=== PATIENT | female | born 1960 | race African-American/Black ===

== ENCOUNTER 2022-12-04 09:42 | Inpatient (IN) | payer OTHER ==
[2022-12-04 10:06] VITALS: BMI 23.1
[2022-12-04] MEDS ORDERED: guaiFENesin 600 MG TABLET.ER (FP) PO PRN (10:37)
[2022-12-04] MEDS ORDERED: BISMUTH SUBSALICYLATE 262 MG/15 ML BTL PO PRN (10:37)
[2022-12-04] MEDS ORDERED: methaDONE HCL 10 MG TABLET (FOR DETOX USE ONLY) PO ONE (10:37)
[2022-12-04] MEDS ORDERED: NALOXONE HCL (KLOXXADO) 8 MG SPRAY NS PRN (10:37)
[2022-12-04] MEDS ORDERED: NICOTINE 10 MG CARTRIDGE (INHALER) IH PRN (10:37)
[2022-12-04] MEDS ORDERED: BENZOCAINE/MENTHOL (CHLORASEPTIC ) LOZENGE MM PRN (10:37)
[2022-12-04] MEDS ORDERED: IBUPROFEN 400 MG TABLET (FP) PO PRN (10:37)
[2022-12-04] MEDS ORDERED: DICYCLOMINE HCL 10 MG CAPSULE PO PRN (10:37)
[2022-12-04] MEDS ORDERED: MAG HYDROX/AL HYDROX/SIMETH 30 ML UNIT-DOSE CUP PO PRN (10:37)
[2022-12-04] MEDS ORDERED: POLYETHYLENE GLYCOL (HEALTHYLAX) 3350 17 GM PACKET PO PRN (10:37)
[2022-12-04] MEDS ORDERED: BENZONATATE 200 MG CAPSULE PO PRN (10:37)
[2022-12-04] MEDS ORDERED: ACETAMINOPHEN 325 MG TABLET (FP) PO PRN (10:37)
[2022-12-04] MEDS ORDERED: NALOXONE HCL 0.4 MG/ML VIAL IM PRN (10:37)
[2022-12-04] MEDS ORDERED: MAGNESIUM HYDROX 2400MG/30ML ORAL SUSPENSION 30 ML CUP PO PRN (10:37)
[2022-12-04] MEDS ORDERED: LOPERAMIDE HCL 2 MG CAPSULE PO PRN (10:37)
[2022-12-04] MEDS ORDERED: methaDONE HCL 10 MG TABLET (FOR DETOX USE ONLY) ONE (12:18)
[2022-12-04] MEDS ORDERED: NICOTINE 14 MG/24 HOURS TOPICAL PATCH TD ONE (12:19)
[2022-12-04] MEDS ORDERED: ONDANSETRON *ODT* 4 MG TABLET ONE (12:19)
[2022-12-04] MEDS: NICOTINE 14 MG/24 HOURS TOPICAL PATCH TD SCH (12:47)
[2022-12-04] MEDS: PRENATAL VITAMINS W/ FOLIC ACID TABLET (FP) PO SCH (12:48)
[2022-12-04] MEDS: cloNIDine HCL 0.1 MG TABLET PO PRN (13:16)
[2022-12-04 13:29] LABS: HEMATOCRIT 38.7 % (32.4-45.2); HEMOGLOBIN 12.5 GM/dL (10.7-15.3); MCH 30.9 pg (25.7-33.7); MCHC 32.3 g/dl (32.0-36.0); MEAN CELL VOLUME 95.5 fl (80-96); MEAN PLT VOLUME 9.4 fl (7.5-11.1); PLATELET COUNT 165 10^3/uL (134-434); RBC 4.05 M/mm3 (3.60-5.2); RDW 13.3 % (11.6-15.6); WHITE BLOOD COUNT 6.8 K/mm3 (4.0-10.0)
[2022-12-04 14:18] LABS: POTASSIUM 4.2 mmol/L (3.5-5.1)
[2022-12-04 14:20] LABS: CALCIUM 10.2 mg/dL (8.5-10.1)
[2022-12-04 14:21] LABS: ALBUMIN 4.1 g/dl (3.4-5.0); BLOOD UREA NITROGEN 27.4 mg/dL (7-18)
[2022-12-04 14:24] LABS: CREATININE 1.5 mg/dL (0.55-1.3)
[2022-12-04 14:26] LABS: BILIRUBIN,TOTAL 0.2 mg/dL (0.2-1); TOT PROT 7.7 g/dl (6.4-8.2)
[2022-12-04] MEDS: hydrOXYzine PAMOATE 25 MG CAPSULE (FP) PO PRN (17:37)
[2022-12-04] MEDS: IBUPROFEN 600 MG TABLET (FP) PO PRN (17:37)
[2022-12-04] MEDS ORDERED: MELATONIN 5 MG TABLETS PO SCH (22:00)
[2022-12-04] MEDS: THIAMINE HCL 100 MG TABLET (FP) PO SCH (22:13)
[2022-12-05] MEDS: PRENATAL VITAMINS W/ FOLIC ACID TABLET (FP) PO SCH (09:59)
[2022-12-05] MEDS: IBUPROFEN 600 MG TABLET (FP) PO PRN (10:01)
[2022-12-05] MEDS: hydrOXYzine PAMOATE 25 MG CAPSULE (FP) PO PRN ×2 (10:01→17:21)
[2022-12-05] MEDS: cloNIDine HCL 0.1 MG TABLET PO PRN (10:01)
[2022-12-05] MEDS: NICOTINE 14 MG/24 HOURS TOPICAL PATCH TD SCH (10:03)
[2022-12-05] MEDS: ONDANSETRON *ODT* 4 MG TABLET SL PRN (10:04)
[2022-12-05] MEDS ORDERED: amLODIPine BESYLATE 5 MG TABLET (FP) PO SCH (11:00)
[2022-12-05] MEDS: METHOCARBAMOL 500 MG TABLET PO PRN ×2 (17:21→23:40)
[2022-12-05] MEDS: THIAMINE HCL 100 MG TABLET (FP) PO SCH (22:20)
[2022-12-05] MEDS: SUVOREXANT 10 MG TABLET PO PRN (22:21)
[2022-12-06] MEDS ORDERED: amLODIPine BESYLATE 5 MG TABLET (FP) PO SCH (10:00)
[2022-12-06] MEDS ORDERED: methaDONE HCL 10 MG TABLET (FOR DETOX USE ONLY) PO ONE (10:00)
[2022-12-06] MEDS: PRENATAL VITAMINS W/ FOLIC ACID TABLET (FP) PO SCH (10:09)
[2022-12-06] MEDS: NICOTINE 14 MG/24 HOURS TOPICAL PATCH TD SCH (10:09)
[2022-12-06] MEDS: cloNIDine HCL 0.1 MG TABLET PO PRN (10:32)
[2022-12-06] MEDS: hydrOXYzine PAMOATE 25 MG CAPSULE (FP) PO PRN (10:32)
[2022-12-06] MEDS ORDERED: amLODIPine BESYLATE 10 MG TABLET (FP) PO SCH (11:00)
[2022-12-06] MEDS ORDERED: MAGNESIUM HYDROX 2400MG/30ML ORAL SUSPENSION 30 ML CUP PO ONE (12:00)
[2022-12-06 12:03] LABS: POTASSIUM 4.3 mmol/L (3.5-5.1)
[2022-12-06 12:05] LABS: ALBUMIN 3.6 g/dl (3.4-5.0); BLOOD UREA NITROGEN 13.5 mg/dL (7-18); CALCIUM 9.8 mg/dL (8.5-10.1)
[2022-12-06 12:08] LABS: PHOSPHOROUS 3.6 mg/dL (2.5-4.9)
[2022-12-06] MEDS ORDERED: LISINOPRIL 10 MG TABLET PO ONE (15:15)
[2022-12-06] MEDS: SUVOREXANT 10 MG TABLET PO PRN (22:05)
[2022-12-06] MEDS: THIAMINE HCL 100 MG TABLET (FP) PO SCH (22:05)
[2022-12-06] MEDS: METHOCARBAMOL 500 MG TABLET PO PRN (22:05)
[2022-12-07] MEDS: hydrOXYzine PAMOATE 25 MG CAPSULE (FP) PO PRN (00:47)
[2022-12-07] MEDS: METHOCARBAMOL 500 MG TABLET PO PRN (05:37)
[2022-12-07] MEDS: ONDANSETRON *ODT* 4 MG TABLET SL PRN (08:25)
[2022-12-07 09:00] VITALS: BP 154/80; PULSE 70; TEMP 96.9
[2022-12-07] MEDS ORDERED: amLODIPine BESYLATE 10 MG TABLET (FP) PO SCH (10:00)
[2022-12-07 10:05] VITALS: RESP 17
[2022-12-07] MEDS: PRENATAL VITAMINS W/ FOLIC ACID TABLET (FP) PO SCH (10:27)
[2022-12-07] MEDS: NICOTINE 14 MG/24 HOURS TOPICAL PATCH TD SCH (10:27)
[2022-12-07] MEDS: THIAMINE HCL 100 MG TABLET (FP) PO SCH (23:25)
[2022-12-08] MEDS ORDERED: methaDONE HCL 10 MG TABLET (FOR DETOX USE ONLY) PO ONE (10:00)
== END 2022-12-07 23:50 | disposition short-term general hospital (02) | DRG 897 ==
LOC: YASAS 09:42 → Y6N 11:26
PROVIDERS: ADMIT Allergy & Immunology; ATTEND Surgery
PROC: HZ2ZZZZ Detoxification Services for Substance Abuse Treatment (ICD-10-PCS; principal; 2022-12-04)
DX: F11.23 Opioid dependence with withdrawal (principal); F14.20 Cocaine dependence, uncomplicated; F19.282 Other psychoactive substance dependence with psychoactive substance-induced sleep disorder; E87.0 Hyperosmolality and hypernatremia; F10.20 Alcohol dependence, uncomplicated; F12.20 Cannabis dependence, uncomplicated; F32.A Depression, unspecified; F41.9 Anxiety disorder, unspecified; R11.2 Nausea with vomiting, unspecified; E86.0 Dehydration; Z85.3 Personal history of malignant neoplasm of breast; Z91.410 Personal history of adult physical and sexual abuse; Z86.19 Personal history of other infectious and parasitic diseases
CPT/HCPCS: 36415; 80053; 80069; 83036; 85027; 86780; 87635; 93005; 93010; Q0162

== ENCOUNTER 2022-12-07 09:37 | Inpatient (IN) | payer OTHER ==
[2022-12-07] MEDS ORDERED: ONDANSETRON 4 MG/2 ML VIAL IVPUSH ONE ×2 (09:57→15:04)
[2022-12-07] MEDS ORDERED: ONDANSETRON 4 MG/2 ML VIAL ONE ×2 (10:03→15:09)
[2022-12-07 10:27] LABS: BASO % 0.6 % (0-2.0); EOS % 1.2 % (0-4.5); HEMATOCRIT 43.4 % (32.4-45.2); HEMOGLOBIN 14.6 GM/dL (10.7-15.3); LYMPH % 19.1 % (8-40); MCH 30.8 pg (25.7-33.7); MCHC 33.7 g/dl (32.0-36.0); MEAN CELL VOLUME 91.2 fl (80-96); MEAN PLT VOLUME 8.7 fl (7.5-11.1); MONO % 5.7 % (3.8-10.2); NEUT % 73.4 % (42.8-82.8); PLATELET COUNT 191 10^3/uL (134-434); RBC 4.76 M/mm3 (3.60-5.2); WHITE BLOOD COUNT 6.2 K/mm3 (4.0-10.0)
[2022-12-07] MEDS ORDERED: METOCLOPRAMIDE HCL INJECTION 10 MG/2 ML VIAL IVPUSH ONE (10:30)
[2022-12-07] MEDS ORDERED: LACTATED RINGERS SOLUTION 1000 ML INFUS.BAG IV ONE (10:30)
[2022-12-07] MEDS ORDERED: FAMOTIDINE 20 MG/50 ML IVPB 20 MG/50 ML MG IVPB ONE ×2 (10:30→10:41)
[2022-12-07] MEDS ORDERED: ACETAMINOPHEN 1000 MG/100 ML BAG IVPB ONE (10:30)
[2022-12-07] MEDS ORDERED: METOCLOPRAMIDE HCL INJECTION 10 MG/2 ML VIAL ONE (10:40)
[2022-12-07] MEDS ORDERED: ACETAMINOPHEN INJECTION 100 ML IVPB ONE (10:41)
[2022-12-07 10:42] LABS: POTASSIUM 4.4 mmol/L (3.5-5.1)
[2022-12-07 10:44] LABS: ALBUMIN 4.1 g/dl (3.4-5.0); BLOOD UREA NITROGEN 11.7 mg/dL (7-18)
[2022-12-07 10:48] LABS: CREATININE 1.1 mg/dL (0.55-1.3)
[2022-12-07 10:50] LABS: BILIRUBIN,TOTAL 0.4 mg/dL (0.2-1); TOT PROT 7.9 g/dl (6.4-8.2)
[2022-12-07] MEDS ORDERED: methaDONE HCL 10 MG TABLET PO ONE (10:59)
[2022-12-07] MEDS ORDERED: methaDONE HCL 10 MG TABLET ONE (11:01)
[2022-12-07] MEDS ORDERED: KETOROLAC TROMETHAMINE 15 MG/ML VIAL IVPUSH ONE (15:05)
[2022-12-07] MEDS ORDERED: MAG HYDROX/AL HYDROX/SIMETH 30 ML UNIT-DOSE CUP PO ONE (15:06)
[2022-12-07] MEDS ORDERED: MAG HYDROX/AL HYDROX/SIMETH 30 ML UNIT-DOSE CUP ONE (15:09)
[2022-12-07] MEDS ORDERED: KETOROLAC TROMETHAMINE 15 MG/ML VIAL ONE (15:09)
[2022-12-07 16:06] LABS: URINE APPEARANCE CLEAR; URINE BILIRUBIN NEGATIVE (NEGATIVE); URINE COLOR YELLOW; URINE GLUCOSE (UA) NEGATIVE (NEGATIVE); URINE KETONE NEGATIVE (NEGATIVE); URINE PROTEIN 3+ (NEGATIVE); URINE UROBILINOGEN 0.2 mg/dL (0.2-1.0)
[2022-12-07 16:07] LABS: URINE LEUK ESTERASE NEGATIVE (NEGATIVE); URINE NITRITE NEGATIVE (NEGATIVE)
[2022-12-07] MEDS: LACTATED RINGERS SOLUTION 1,000 ML IV SCH (16:36)
[2022-12-07] MEDS ORDERED: morphine SULFATE 4 MG/ML VIAL ONE (19:34)
[2022-12-07 21:19] VITALS: BMI 23.6
[2022-12-07] MEDS: ACETAMINOPHEN 1000 MG/100 ML BAG IVPB PRN (22:46)
[2022-12-08] MEDS: ACETAMINOPHEN 1000 MG/100 ML BAG IVPB PRN ×3 (05:57→21:21)
[2022-12-08] MEDS ORDERED: methaDONE HCL 10 MG TABLET PO ONE (06:00)
[2022-12-08] MEDS ORDERED: LABETALOL HCL 100 MG TABLET (FP) PO ONE (06:28)
[2022-12-08 10:09] LABS: BASO % 0.9 % (0-2.0); EOS % 0.3 % (0-4.5); HEMOGLOBIN 15.8 GM/dL (10.7-15.3); LYMPH % 16.1 % (8-40); MCH 31.2 pg (25.7-33.7); MCHC 34.3 g/dl (32.0-36.0); MEAN CELL VOLUME 90.7 fl (80-96); MEAN PLT VOLUME 8.9 fl (7.5-11.1); MONO % 5.4 % (3.8-10.2); NEUT % 77.3 % (42.8-82.8); PLATELET COUNT 202 10^3/uL (134-434); RBC 5.07 M/mm3 (3.60-5.2); RDW 12.7 % (11.6-15.6); WHITE BLOOD COUNT 9.4 K/mm3 (4.0-10.0)
[2022-12-08 10:22] LABS: POTASSIUM 3.7 mmol/L (3.5-5.1)
[2022-12-08 10:24] LABS: ALBUMIN 4.1 g/dl (3.4-5.0)
[2022-12-08 10:25] LABS: CALCIUM 9.9 mg/dL (8.5-10.1); MAGNESIUM 1.9 mg/dL (1.8-2.4)
[2022-12-08 10:28] LABS: CREATININE 1.3 mg/dL (0.55-1.3); PHOSPHOROUS 4.5 mg/dL (2.5-4.9)
[2022-12-08 10:30] LABS: BILIRUBIN,TOTAL 0.5 mg/dL (0.2-1); TOT PROT 8.3 g/dl (6.4-8.2)
[2022-12-08] MEDS: ENOXAPARIN NA (PORCINE) 40 MG/0.4 ML DISP.SYRIN SQ SCH (11:46)
[2022-12-08] MEDS: ONDANSETRON 4 MG/2 ML VIAL IVPUSH PRN (14:58)
[2022-12-08] MEDS: morphine SULFATE 4 MG/ML VIAL IVPUSH PRN (17:14)
[2022-12-08] MEDS: LACTATED RINGERS SOLUTION 1,000 ML IV SCH (17:26)
[2022-12-08] MEDS ORDERED: amLODIPine BESYLATE 5 MG TABLET (FP) PO ONE (17:36)
[2022-12-09] MEDS: morphine SULFATE 4 MG/ML VIAL IVPUSH PRN ×3 (01:30→21:42)
[2022-12-09] MEDS: LACTATED RINGERS SOLUTION 1,000 ML IV SCH ×2 (05:07→16:30)
[2022-12-09] MEDS: ACETAMINOPHEN 1000 MG/100 ML BAG IVPB PRN ×2 (06:05→16:53)
[2022-12-09 09:44] LABS: BASO % 0.6 % (0-2.0); EOS % 0.7 % (0-4.5); HEMATOCRIT 43.4 % (32.4-45.2); HEMOGLOBIN 14.7 GM/dL (10.7-15.3); LYMPH % 23.2 % (8-40); MCH 31.2 pg (25.7-33.7); MCHC 33.8 g/dl (32.0-36.0); MEAN CELL VOLUME 92.2 fl (80-96); MEAN PLT VOLUME 8.8 fl (7.5-11.1); MONO % 8.2 % (3.8-10.2); NEUT % 67.3 % (42.8-82.8); PLATELET COUNT 166 10^3/uL (134-434); RBC 4.71 M/mm3 (3.60-5.2); RDW 12.8 % (11.6-15.6); WHITE BLOOD COUNT 6.6 K/mm3 (4.0-10.0)
[2022-12-09] MEDS: ENOXAPARIN NA (PORCINE) 40 MG/0.4 ML DISP.SYRIN SQ SCH (10:29)
[2022-12-09 10:30] LABS: POTASSIUM 4.2 mmol/L (3.5-5.1)
[2022-12-09 10:32] LABS: CALCIUM 9.8 mg/dL (8.5-10.1)
[2022-12-09 10:33] LABS: ALBUMIN 3.9 g/dl (3.4-5.0); BLOOD UREA NITROGEN 12.9 mg/dL (7-18)
[2022-12-09 10:36] LABS: PHOSPHOROUS 3.3 mg/dL (2.5-4.9)
[2022-12-09 10:37] LABS: BILIRUBIN,TOTAL 0.4 mg/dL (0.2-1); TOT PROT 7.5 g/dl (6.4-8.2)
[2022-12-09] MEDS ORDERED: amLODIPine BESYLATE 5 MG TABLET (FP) PO SCH (11:00)
[2022-12-10] MEDS: ONDANSETRON 4 MG/2 ML VIAL IVPUSH PRN (04:14)
[2022-12-10] MEDS: morphine SULFATE 4 MG/ML VIAL IVPUSH PRN ×3 (04:42→16:19)
[2022-12-10] MEDS: LACTATED RINGERS SOLUTION 1,000 ML IV SCH (08:13)
[2022-12-10] MEDS: ENOXAPARIN NA (PORCINE) 40 MG/0.4 ML DISP.SYRIN SQ SCH (10:31)
[2022-12-10] MEDS: amLODIPine BESYLATE 5 MG TABLET (FP) PO SCH (10:36)
[2022-12-10 10:45] LABS: BASO % 0.9 % (0-2.0); EOS % 1.6 % (0-4.5); HEMATOCRIT 43.3 % (32.4-45.2); HEMOGLOBIN 14.7 GM/dL (10.7-15.3); LYMPH % 28.4 % (8-40); MCH 31.4 pg (25.7-33.7); MCHC 33.8 g/dl (32.0-36.0); MEAN CELL VOLUME 92.7 fl (80-96); MEAN PLT VOLUME 9.3 fl (7.5-11.1); MONO % 12.8 % (3.8-10.2); NEUT % 56.3 % (42.8-82.8); PLATELET COUNT 187 10^3/uL (134-434); RBC 4.67 M/mm3 (3.60-5.2); RDW 12.6 % (11.6-15.6); WHITE BLOOD COUNT 5.4 K/mm3 (4.0-10.0)
[2022-12-10 10:53] LABS: POTASSIUM 4.2 mmol/L (3.5-5.1)
[2022-12-10 10:56] LABS: ALBUMIN 3.8 g/dl (3.4-5.0); BLOOD UREA NITROGEN 12.1 mg/dL (7-18)
[2022-12-10 10:57] LABS: CALCIUM 9.6 mg/dL (8.5-10.1)
[2022-12-10 11:01] LABS: PHOSPHOROUS 3.3 mg/dL (2.5-4.9)
[2022-12-10 11:02] LABS: BILIRUBIN,TOTAL 0.5 mg/dL (0.2-1); TOT PROT 7.1 g/dl (6.4-8.2)
[2022-12-10] MEDS: ACETAMINOPHEN 1000 MG/100 ML BAG IVPB PRN (21:01)
[2022-12-11] MEDS ORDERED: MELATONIN 5 MG TABLETS PO ONE (01:09)
[2022-12-11] MEDS: morphine SULFATE 4 MG/ML VIAL IVPUSH PRN ×2 (06:19→15:20)
[2022-12-11] MEDS: LACTATED RINGERS SOLUTION 1,000 ML IV SCH ×2 (06:28→10:35)
[2022-12-11 09:47] LABS: EOS % 2.8 % (0-4.5); HEMATOCRIT 40.2 % (32.4-45.2); HEMOGLOBIN 13.5 GM/dL (10.7-15.3); LYMPH % 30.9 % (8-40); MCHC 33.5 g/dl (32.0-36.0); MEAN CELL VOLUME 92.6 fl (80-96); MEAN PLT VOLUME 8.5 fl (7.5-11.1); MONO % 15.4 % (3.8-10.2); NEUT % 49.9 % (42.8-82.8); PLATELET COUNT 165 10^3/uL (134-434); RBC 4.34 M/mm3 (3.60-5.2); RDW 12.5 % (11.6-15.6); WHITE BLOOD COUNT 3.5 K/mm3 (4.0-10.0)
[2022-12-11 10:03] LABS: POTASSIUM 3.8 mmol/L (3.5-5.1)
[2022-12-11 10:08] LABS: ALBUMIN 3.3 g/dl (3.4-5.0); BLOOD UREA NITROGEN 11.1 mg/dL (7-18); MAGNESIUM 1.7 mg/dL (1.8-2.4)
[2022-12-11 10:11] LABS: CREATININE 0.8 mg/dL (0.55-1.3); PHOSPHOROUS 3.2 mg/dL (2.5-4.9)
[2022-12-11 10:12] LABS: BILIRUBIN,TOTAL 0.7 mg/dL (0.2-1); TOT PROT 6.1 g/dl (6.4-8.2)
[2022-12-11] MEDS: amLODIPine BESYLATE 5 MG TABLET (FP) PO SCH (10:35)
[2022-12-11] MEDS: ENOXAPARIN NA (PORCINE) 40 MG/0.4 ML DISP.SYRIN SQ SCH (10:35)
[2022-12-11] MEDS: LISINOPRIL 5 MG TABLET PO SCH (15:24)
[2022-12-11] MEDS ORDERED: MAGNESIUM HYDROX 2400MG/30ML ORAL SUSPENSION 30 ML CUP PO ONE (18:27)
[2022-12-11] MEDS: SENNOSIDES 8.8 MG/5 ML SYRUP PO SCH ×2 (22:01→22:35)
[2022-12-12] MEDS: LISINOPRIL 5 MG TABLET PO SCH (10:49)
[2022-12-12] MEDS: ENOXAPARIN NA (PORCINE) 40 MG/0.4 ML DISP.SYRIN SQ SCH (10:49)
[2022-12-12] MEDS: amLODIPine BESYLATE 10 MG TABLET (FP) PO SCH (10:49)
[2022-12-12] MEDS: LACTATED RINGERS SOLUTION 1,000 ML IV SCH (10:50)
[2022-12-12] MEDS: ACETAMINOPHEN 500 MG TABLET (FP) PO PRN (14:04)
[2022-12-12] MEDS: SENNOSIDES 8.8 MG/5 ML SYRUP PO SCH (21:04)
[2022-12-12] MEDS: morphine SULFATE 4 MG/ML VIAL IVPUSH PRN (22:04)
[2022-12-12 23:09] VITALS: RESP 18
[2022-12-13] MEDS: ONDANSETRON 4 MG/2 ML VIAL IVPUSH PRN (01:28)
[2022-12-13] MEDS: ACETAMINOPHEN 500 MG TABLET (FP) PO PRN (03:59)
[2022-12-13] MEDS: LACTATED RINGERS SOLUTION 1,000 ML IV SCH (10:33)
[2022-12-13 10:34] VITALS: PULSE 76
[2022-12-13] MEDS: amLODIPine BESYLATE 10 MG TABLET (FP) PO SCH (10:37)
[2022-12-13] MEDS: ENOXAPARIN NA (PORCINE) 40 MG/0.4 ML DISP.SYRIN SQ SCH (10:37)
[2022-12-13] MEDS: LISINOPRIL 5 MG TABLET PO SCH (10:37)
[2022-12-13 16:18] VITALS: BP 133/58; TEMP 98.4
== END 2022-12-13 16:59 | disposition home or self-care (01) | DRG 392 ==
LOC: JER 09:37 → JERBED 14:40 → OBSVTOIN 16:20 → J5S 20:28
PROVIDERS: ADMIT Internal Medicine; ATTEND Student in an Organized Health Care Education/Training Program
DX: I77.4 Celiac artery compression syndrome (principal); R11.2 Nausea with vomiting, unspecified; F19.10 Other psychoactive substance abuse, uncomplicated; I10 Essential (primary) hypertension; F17.210 Nicotine dependence, cigarettes, uncomplicated
CPT/HCPCS: 36415; 74177-TC; 76705-TC; 80053; 81003; 83605; 83690; 83735; 84100; 84484; 85025; 93005; 93010; 99285-25; A9579; C8902; G0378; Q9967